=== PATIENT | male | born 1950 | race Two or more races ===

== ENCOUNTER 2021-08-19 17:33 | Emergency (ER) | payer MEDICARE, SELFPAY ==
--- NOTE | ~2021-08-19 | XR_ITS ---
EXAMINATION: XR HAND, RIGHT CLINICAL INFORMATION: Swelling of fifth finger. Erythema. COMPARISON: None TECHNIQUE: Three views of the right hand. FINDINGS: No radiopaque foreign body. No air in the soft tissue. No bone destruction or abnormal periosteal reaction. No radiographic evidence for osteomyelitis. Bone mineral density is maintained. No significant degenerative change. Joint spaces are normal. XR/XR hand RT 2V IMPRESSION: Normal right hand.
--- NOTE | 2021-08-19 17:41 | ED_ITS ---
HPI - General Adult General Chief complaint: Extremity Injury, Upper Stated complaint: skin- redness Time Seen by Provider: 08/19/21 17:41 Source: patient Mode of arrival: ambulatory History of Present Illness HPI narrative: 70-year-old male with past medical history of diabetes, AFib s/p ablation on Eliquis, HTN, HLD, presenting to the ED complaining of right 5th digit pain, swelling and decreased ROM x4 days. Denies known injury/trauma or fall, numbness, tingling, fever, chills, drainage from area. Related Data Previous Rx's Medication Instructions Recorded amoxicillin 875 mg-potassium 1 tab PO Q12H 7 Days #14 tab 08/19/21 clavulanate 125 mg tablet (Augmentin) prednisone 20 mg tablet 40 mg PO DAILY 4 Days #8 tab 08/19/21 Allergies Allergy/AdvReac Type Severity Reaction Status Date / Time No Known Allergies Allergy Verified 08/19/21 17:47 Review of Systems Verdana 4l Review of Systems: Verdana 4d Verdana 4d Constitutional: No Fever, No Chills ENT/Mouth: No Ear Pain, No Nasal Congestion, No sore throat, No Swallowing Difficulty Cardiovascular: No Chest Pain, No SOB Respiratory: No Cough, No Sputum Gastrointestinal: No Nausea, No Vomiting, No DiarrheaDiarrhea, No Constipation, No Abdominal pain Genitourinary: No Dysuria, No Hematuria, No Flank Pain Musculoskeletal: + joint pain, No Myalgias, + Joint Swelling Skin: No Skin Lesions, No rash Neuro: No Weakness, No Numbness, No Paresthesias Yes all other systems are reviewed and are negative [facility] Past Medical History Attestation statement: The following information was validated with the patient. Medical History Atrial fibrillation Diabetes DVT (deep venous thrombosis) Failed total left knee replacement Surgical History H/O cardiac radiofrequency ablation History of right hip replacement Social History Social History Advance Directives: No Advance Directives Information Provided: No Physical Exam Verdana 4l Vital Signs: Verdana 4d Verdana 4d Vital Signs: Verdana 4d Verdana 4Bd Last Vital Signs Verdana 4d Herb Grower New 4d Herb Grower New 4d Temp 98.4 F 08/19/21 17:42 Herb Grower New 4d Pulse 89 08/19/21 17:42 Herb Grower New 4d Resp 16 08/19/21 17:42 BP 150/74 H 08/19/21 17:42 Pulse Ox 96 08/19/21 17:42 BMI result Body Mass Index 35.9 Const: General: cooperative, healthy appearing, comfortable and no acute distress Orientation/consciousness: patient oriented x3 Limitations: no limitations HENMT: Head: Yes normal to inspection Ears: hearing grossly normal bilaterally General nose exam: Normal external nose present Face and sinus: Yes normal facial exam Eyes: General: appearance normal, both eyes and all related structures EOM: EOMs intact bilaterally Neck: Neck: Yes normal visual inspection and Yes no meningeal signs Resp: Effort & Inspection: normal respiratory effort and no respiratory distress Cardio: Rate: regular rate Peripheral pulses: radial pulses present Skin: Rashes: no rashes Wounds: no wounds Neuro: General: patient oriented x3 and no meningeal signs Gait exam (Neuro): Normal gait present Extrem: Other: Please refer to images above. Right 5th digit with noted swelling, erythema, and warmth to PIP with tenderness to palpation. Decreased ROM secondary to pain/swelling. Erythema extending to hand on palmar and volar aspect. No fluctuance/induration. NV intact. Course Course Course Narrative: -1848--no leukocytosis. Lactic acid elevated to 2.8 likely from Metformin rather than severe sepsis > Low concern for sepsis XR hand RT 2V IMPRESSION: Normal right hand. -1911-- Creatinine 1.49 (no priors to compare), uric acid mildly elevated at 9.1, CRP mildly elevated 3.15, ESR 40 -case discussed with Dr. Mejia > lower concern for septic joint/arthritis >> results discussed with patient, will treat empirically with p.o. Augmentin for infectious etiology and Prednisone for gout. Patient unable to take NSAIDs due to anticoagulation therapy. Discussed close glucose monitoring while on prednisone. Patient needs re-evaluation in 2 days, he verbalized understanding and feels safe for discharge home at this time Medical Decision Making MDM Narrative Medical decision making narrative: 70-year-old male with past medical history of diabetes, AFib s/p ablation on Eliquis, HTN, HLD, presenting to the ED complaining of right 5th digit pain, swelling and decreased ROM x4 days. Concern for cellulitis vs Gout vs ?Septic joint/arthritis vs tick/insect bite. No evidence of abscess at this time Low concern for severe sepsis. Plan: Labs, lactic/blood cultures, CXR, re-evaluate Medical Records Medical records reviewed: Yes I reviewed the patient's medical records. Lab Data Lab results reviewed: Yes I reviewed the patient's lab results. Result diagrams: 08/19/21 18:21 08/19/21 18:21 Labs: Lab Results 08/19/21 08/19/21 Range/Units 18:21 18:21 WBC 8.1 (4.8-10.8) X10*3/uL RBC 4.36 L (4.60-5.80) X10*6/uL Hgb 11.6 L (14.0-18.0) g/dl Hct 37.0 L (42.0-52.0) % MCV 84.9 (80.0-98.0) fL MCH 26.6 L (27.0-33.0) pg MCHC 31.4 (31.0-36.0) g/dl RDW 18.7 H (11.0-16.0) % Plt Count 220 (160-400) X10*3/uL MPV 10.2 (9.4-12.4) fL Immature Gran % (Auto) 0.5 H (0.0-0.4) % Neut % (Auto) 75.1 H (45-73) % Lymph % (Auto) 12.5 L (20-40) % [place] % (Auto) 7.5 (2-11) % Eos % (Auto) 3.5 (0-4) % Baso % (Auto) 0.9 (0-2) % Lymph # (Auto) 1.0 L (1.2-4.9) X10*3/uL [place] # (Auto) 0.6 (0.1-1.2) X10*3/uL Eos # (Auto) 0.3 (0.0-0.4) X10*3/uL Baso # (Auto) 0.1 (0.0-0.2) X10*3/uL Abs Immat Gran (auto) 0.04 H (0.00-0.03) X10*3/uL Absolute Neuts (auto) 6.1 (2.0-8.3) x10*3/uL Absolute Nucleated RBC 0.000 (0.0-0.012) X10*3/uL Nucleated RBC % (auto) 0.0 (0.0-0.2) /100WBC Lactic Acid 2.8 H* (0.5-2.0) mmol/L Discharge Plan Discharge Clinical Impression: Cellulitis, Gout Patient Disposition: Home, Self-Care Instructions: Cellulitis (ED), Low Purine Diet (ED), Gout (ED) Additional Instructions: Your blood work shows an elevation in your uric acid which is consistent with gout as well as elevated inflammatory markers. You have cellulitis. Augmentin as an antibiotic please take as prescribed. In addition prednisone will help with gout. Take Tylenol as you cannot take ibuprofen due to being on Eliquis. Be aware prednisone will affect your glucose, monitor closely YOU NEED TO BE RE-EVALUATED IN 2 DAYS If symptoms persist or worsen, redness spreads, swelling worsens, pain becomes unbearable, you develop fever, streaking return to the ED immediately Prescriptions: New prednisone 20 mg tablet 40 mg PO DAILY 4 Days Qty: 8 0RF amoxicillin-pot clavulanate [Augmentin] 875-125 mg tablet 1 tab PO Q12H 7 Days Qty: 14 0RF Referrals: Alee Guidry MD [Primary Care Provider] - 2 days (For re-evaluation)
[2021-08-19 17:42] VITALS: BP 150/74; PULSE 89; RESP 16; TEMP 36.9; O2SAT 96; BMI 35.9
[2021-08-19 18:30] LABS: MANUAL DIFF FLAG NO
[2021-08-19 18:33] LABS: Basophils Absolute Auto 0.1 X10*3/uL (0.0-0.2); Basophils Percent Auto 0.9 % (0-2); Eosinophils Absolute Auto 0.3 X10*3/uL (0.0-0.4); Eosinophils Percent Auto 3.5 % (0-4); Hemoglobin 11.6 g/dl (14.0-18.0); Imm Gran Abs Auto 0.04 X10*3/uL (0.00-0.03); Imm Gran Pct Auto 0.5 % (0.0-0.4); Lymphocytes Percent Auto 12.5 % (20-40); Mean Corpuscular HGB Conc 31.4 g/dl (31.0-36.0); Mean Corpuscular Hemoglobin 26.6 pg (27.0-33.0); Mean Corpuscular Volume 84.9 fL (80.0-98.0); Mean Platelet Volume 10.2 fL (9.4-12.4); Monocytes Absolute Auto 0.6 X10*3/uL (0.1-1.2); Monocytes Percent Auto 7.5 % (2-11); Neutrophils Absolute Auto 6.1 x10*3/uL (2.0-8.3); Neutrophils Percent Auto 75.1 % (45-73); Platelet Count 220 X10*3/uL (160-400); Red Blood Count 4.36 X10*6/uL (4.60-5.80); Red Cell Distribution Width 18.7 % (11.0-16.0); White Blood Count 8.1 X10*3/uL (4.8-10.8)
[2021-08-19 18:49] LABS: Lactic Acid 2.8 mmol/L (0.5-2.0)
[2021-08-19 18:50] LABS: Anion Gap 19 (12-20); Blood Urea Nitrogen 15 mg/dL (9-16); C Reactive Protein 3.15 mg/dL (< or = 0.50); Carbon Dioxide 23 mmol/L (22-29); Chloride 99 mmol/L (96-108); Estimated Glomerular Filt Rate 47; Glucose Random 162 mg/dL (60-115); Potassium 3.6 mmol/L (3.3-5.1); Sodium 137 mmol/L (135-145); Uric Acid 9.1 mg/dL (3.4-7.0)
[2021-08-19] MEDS: 0.9 % Sodium Chloride 1,000 ML 999 ML IV (18:55)
[2021-08-19 19:08] LABS: Erythrocyte Sedimentation Rate 40 MM/HR (0-15)
[2021-08-19] MEDS: Amoxicillin/Potassium Clav 875 MG TABLET PO (19:28)
[2021-08-19] MEDS: predniSONE 20 MG TABLET 40 MG PO (19:28)
[2021-08-19 20:28] LABS: Reflex Lactate? Lactic Acid Added
== END 2021-08-19 20:16 | disposition home or self-care (01) ==
PROVIDERS: Physician Assistant; Emergency Provider Emergency Medicine Emergency Medical Services; PCP Internal Medicine
DX: L03.011 Cellulitis of right finger (principal); M10.9 Gout, unspecified; M79.644 Pain in right finger(s); E11.9 Type 2 diabetes mellitus without complications; I10 Essential (primary) hypertension; I48.91 Unspecified atrial fibrillation; Z79.01 Long term (current) use of anticoagulants
CPT/HCPCS: 36415; 73120; 80048; 83605; 84550; 85025; 85652; 86140; 87040; 96360; 99284

== ENCOUNTER 2022-03-16 10:44 | Emergency (ER) | payer MEDICARE, SELFPAY ==
--- NOTE | ~2022-03-16 | XR_ITS ---
EXAMINATION: X-RAY RIGHT WRIST CLINICAL INFORMATION: Medial pain 3 days. No known injury. COMPARISON: None TECHNIQUE: X-ray 08/19/2021 FINDINGS: Skin marker positioned along the medial aspect of the wrist. No evidence of acute fracture or dislocation. Mild degenerative changes in the distal ulna/ulnar styloid process. No evidence of significant arthropathy. No erosions or abnormal soft tissue calcification. Wrist soft tissue swelling.. XR/XR hand wrist RT IMPRESSION: No radiographically evident acute fracture. Mild degenerative changes as above.
[2022-03-16 10:50] VITALS: BP 150/61; PULSE 88; RESP 20; TEMP 36.9; O2SAT 98; BMI 35.7
[2022-03-16 11:16] LABS: MANUAL DIFF FLAG NO
[2022-03-16 11:22] LABS: Basophils Absolute Auto 0.1 X10*3/uL (0.0-0.2); Eosinophils Absolute Auto 0.2 X10*3/uL (0.0-0.4); Eosinophils Percent Auto 2.6 % (0-4); Hematocrit 37.4 % (42.0-52.0); Hemoglobin 11.4 g/dl (14.0-18.0); Imm Gran Abs Auto 0.04 X10*3/uL (0.00-0.03); Imm Gran Pct Auto 0.4 % (0.0-0.4); Lymphocytes Absolute Auto 0.9 X10*3/uL (1.2-4.9); Mean Corpuscular HGB Conc 30.5 g/dl (31.0-36.0); Mean Corpuscular Hemoglobin 24.5 pg (27.0-33.0); Mean Corpuscular Volume 80.3 fL (80.0-98.0); Monocytes Absolute Auto 0.6 X10*3/uL (0.1-1.2); Platelet Count 264 X10*3/uL (160-400); Red Blood Count 4.66 X10*6/uL (4.60-5.80); Red Cell Distribution Width 17.2 % (11.0-16.0); White Blood Count 8.9 X10*3/uL (4.8-10.8)
[2022-03-16 11:32] LABS: Anion Gap 14 (12-20); Blood Urea Nitrogen 11 mg/dL (9-16); Calcium 8.9 mg/dL (8.4-10.2); Carbon Dioxide 30 mmol/L (22-29); Chloride 98 mmol/L (96-108); Creatinine Clr Calc Pharmacy 83.9; Estimated Glomerular Filt Rate > 60; Glucose Random 159 mg/dL (60-115); Potassium 3.6 mmol/L (3.3-5.1); Sodium 138 mmol/L (135-145)
--- NOTE | 2022-03-16 14:57 | ED.EXTPRO ---
HPI - Extremity Problem General Chief complaint: Extremity Problem Stated complaint: R hand pain, unable to move, no inj Time Seen by Provider: 03/16/22 11:26 Source: patient Mode of arrival: ambulatory Limitations: no limitations History of Present Illness HPI Narrative: 71-year-old male with a past medical history of diabetes, AFib on Eliquis, DVT, gout, who presented today for evaluation of right wrist/hand pain, swelling and erythema x4 days; reports worsening of symptoms since Monday. Denies any injury or similar episodes in the past. Tried tylenol, ice, and compression with no relief of symptoms. Denies fever, cough, shortness of breath, chest pain, nausea, vomiting, diarrhea. Denies any recent illness. Does report one prior episode of gout in his great toe and right pinky. MD Complaint: joint swelling and joint pain Onset (ago): day(s) Pain Consistency: constant Location: right Relieving factors: nothing Exacerbating factors: range of motion Associated symptoms: denies other symptoms Context: history of gout Related Data Previous Rx's Medication Instructions Recorded amoxicillin 875 mg-potassium 1 tab PO Q12H 7 days #14 tabs 08/19/21 clavulanate 125 mg tablet (Augmentin) prednisone 20 mg tablet 40 mg PO DAILY 4 days #8 tabs 08/19/21 acetaminophen 500 mg tablet 500 mg PO Q6H PRN fever or pain 03/16/22 (Tylenol Extra Strength) #14 tabs cephalexin 500 mg capsule 500 mg PO QID 7 days #28 caps 03/16/22 doxycycline hyclate 100 mg tablet 100 mg PO BID 7 days #14 tabs 03/16/22 prednisone 20 mg tablet 40 mg PO DAILY 5 days #10 tabs 03/16/22 Allergies Allergy/AdvReac Type Severity Reaction Status Date / Time No Known Allergies Allergy Verified 08/19/21 17:47 Review of Systems Review of Systems: Constitutional: No Fever, No Chills ENT/Mouth: No Ear Pain, No Nasal Congestion, No Sinus Pain, No Hoarseness, No sore throat, No Rhinorrhea, No Swallowing Difficulty Cardiovascular: No Chest Pain, No SOB Respiratory: No Cough, No Sputum, No Wheezing Gastrointestinal: No Nausea, No Vomiting, No Diarrhea, No Constipation, No Abdominal pain Genitourinary: No Dysuria, No Urinary Frequency, No Hematuria, No Urinary Incontinence/retention, No Urgency, No Flank Pain Musculoskeletal: + right wrist pain, + right wrist swelling Skin: +warmth and redness of right wrist. No Skin Lesions, No rash Neuro: No Weakness, No Numbness, No Paresthesias Yes all other systems are reviewed and are negative Constitutional: Constitutional: Reports as per [facility] Past Medical History Attestation statement: The following information was validated with the patient. Medical History Atrial fibrillation Diabetes DVT (deep venous thrombosis) Failed total left knee replacement Surgical History H/O cardiac radiofrequency ablation History of right hip replacement Social History Social History Advance Directives: Yes Advance Directives Information Provided: Yes Advance Directives on File: No Physical Exam Vital Signs: Vital Signs: Last Vital Signs Temp 98.4 F 03/16/22 10:50 Pulse 88 03/16/22 10:50 Resp 20 03/16/22 10:50 BP 150/61 H 03/16/22 10:50 Pulse Ox 98 03/16/22 10:50 O2 Del Method 03/16/22 10:50 BMI result Body Mass Index 35.7 Const: General: cooperative, healthy appearing and no acute distress Orientation/consciousness: patient oriented x3 Limitations: no limitations HEENT: Head: Yes normal to inspection and Yes atraumatic Ears: hearing grossly normal bilaterally General nose exam: Normal external nose present Face and sinus: Yes normal facial exam Eyes: General: appearance normal, both eyes and all related structures EOM: EOMs intact bilaterally Neck: Neck: Yes normal visual inspection and Yes no meningeal signs Resp: Effort & Inspection: normal respiratory effort and no respiratory distress Cardio: Rate: regular rate Heart sounds: S1 normal heart sound present and S2 normal heart sound present Peripheral pulses: radial pulses present and ulnar radial pulses present GI: Inspection: Yes normal to inspection : General: Yes no CVA tenderness Back/Spine/Pelvis: Back: no CVA tenderness Neuro: General: patient oriented x3, tone normal and no meningeal signs Gait exam (Neuro): Normal gait present Extrem: Other: Please refer to image above Right upper extremity: edema and wrist Details: tenderness, swelling, abnormal ROM (secondary to pain) Details: pain with active ROM during and pain with passive ROM during and warmth Left upper extremity: normal to inspection Right lower extremity: normal to inspection Left lower extremity: normal to inspection Course Course Course Narrative: XR hand wrist RT IMPRESSION: No radiographically evident acute fracture. Mild degenerative changes as above.? -no leukocytosis, ESR and CRP acutely elevated -lactic acid negative. uric acid also elevated to 8.0 > more likely gouty arthritic flare rather than septic joint > case was discussed with Ortho CAROLYN Funk who is in agreement with plan to discharge patient with p.o. antibiotics and gout treatment Results discussed with patient including worrisome signs and symptoms and strict return precautions, and when to return to the emergency department. They verbalized understanding and feel safe for discharge at this time. MDM - Extremity (Nontraumatic) MDM Narrative Medical decision making narrative: Patient is a 71-year-old male presenting with swelling, redness, and pain of the right wrist since Monday..On exam, redness, warmth, and swelling of right wrist noted. ROM limited due to pain and swelling. Hand neurovascularly intact. Xrays of right wrist unremarkable, no leukocytosis. Differential includes: gout vs septic arthritis vs cellulitis. Medical Records Attestation: I reviewed the patient's medical records. Lab Data Attestation: I reviewed the patient's lab results. Result diagrams: 03/16/22 11:08 03/16/22 11:08 Labs: Lab Results 03/16/22 03/16/22 03/16/22 Range/Units 11:08 11:08 11:08 WBC 8.9 (4.8-10.8) X10*3/uL RBC 4.66 (4.60-5.80) X10*6/uL Hgb 11.4 L (14.0-18.0) g/dl Hct 37.4 L (42.0-52.0) % MCV 80.3 (80.0-98.0) fL MCH 24.5 L (27.0-33.0) pg MCHC 30.5 L (31.0-36.0) g/dl RDW 17.2 H (11.0-16.0) % Plt Count 264 (160-400) X10*3/uL MPV 10.0 (9.4-12.4) fL Immature Gran % (Auto) 0.4 (0.0-0.4) % Neut % (Auto) 79.0 H (45-73) % Lymph % (Auto) 10.0 L (20-40) % [place] % (Auto) 7.0 (2-11) % Eos % (Auto) 2.6 (0-4) % Baso % (Auto) 1.0 (0-2) % Lymph # (Auto) 0.9 L (1.2-4.9) X10*3/uL [place] # (Auto) 0.6 (0.1-1.2) X10*3/uL Eos # (Auto) 0.2 (0.0-0.4) X10*3/uL Baso # (Auto) 0.1 (0.0-0.2) X10*3/uL Abs Immat Gran (auto) 0.04 H (0.00-0.03) X10*3/uL Absolute Neuts (auto) 7.0 (2.0-8.3) x10*3/uL Absolute Nucleated RBC 0.000 (0.0-0.012) X10*3/uL Nucleated RBC % (auto) 0.0 (0.0-0.2) /100WBC ESR 80 H (0-15) MM/HR Sodium 138 (135-145) mmol/L Potassium 3.6 (3.3-5.1) mmol/L Chloride 98 (96-108) mmol/L Carbon Dioxide 30 H (22-29) mmol/L Anion Gap 14 (12-20) BUN 11 (9-16) mg/dL Creatinine 1.03 (0.5-1.4) mg/dL Estim Creat Clear Calc 83.9 Estimated GFR > 60 Random Glucose 159 H (60-115) mg/dL Lactic Acid (0.5-2.0) mmol/L Uric Acid (3.4-7.0) mg/dL Calcium 8.9 (8.4-10.2) mg/dL C-Reactive Protein 6.92 H (< or = 0.50) mg/dL 03/16/22 03/16/22 Range/Units 15:37 15:37 WBC (4.8-10.8) X10*3/uL RBC (4.60-5.80) X10*6/uL Hgb (14.0-18.0) g/dl Hct (42.0-52.0) % MCV (80.0-98.0) fL MCH (27.0-33.0) pg MCHC (31.0-36.0) g/dl RDW (11.0-16.0) % Plt Count (160-400) X10*3/uL MPV (9.4-12.4) fL Immature Gran % (Auto) (0.0-0.4) % Neut % (Auto) (45-73) % Lymph % (Auto) (20-40) % [place] % (Auto) (2-11) % Eos % (Auto) (0-4) % Baso % (Auto) (0-2) % Lymph # (Auto) (1.2-4.9) X10*3/uL [place] # (Auto) (0.1-1.2) X10*3/uL Eos # (Auto) (0.0-0.4) X10*3/uL Baso # (Auto) (0.0-0.2) X10*3/uL Abs Immat Gran (auto) (0.00-0.03) X10*3/uL Absolute Neuts (auto) (2.0-8.3) x10*3/uL Absolute Nucleated RBC (0.0-0.012) X10*3/uL Nucleated RBC % (auto) (0.0-0.2) /100WBC ESR (0-15) MM/HR Sodium (135-145) mmol/L Potassium (3.3-5.1) mmol/L Chloride (96-108) mmol/L Carbon Dioxide (22-29) mmol/L Anion Gap (12-20) BUN (9-16) mg/dL Creatinine (0.5-1.4) mg/dL Estim Creat Clear Calc Estimated GFR Random Glucose (60-115) mg/dL Lactic Acid 1.4 (0.5-2.0) mmol/L Uric Acid 8.0 H (3.4-7.0) mg/dL Calcium (8.4-10.2) mg/dL C-Reactive Protein (< or = 0.50) mg/dL Discharge Plan Discharge Clinical Impression: Gout, Cellulitis Patient Disposition: Home, Self-Care Instructions: Cellulitis (ED), Gout (ED), Low Purine Diet (ED) Additional Instructions: Your x-rays are unremarkable. your blood work shows elevation your inflammatory markers and uric acid consistent with gout. Keflex and doxycycline or antibiotics please take as prescribed. Avoid the sun while on doxycycline as makes you very sensitive to sunburn Prednisone will help with a gouty flare, be aware this medication will increase your sugar, monitor closely. You should be re-evaluated in 2 days. If your symptoms persist or worsen, pain becomes unbearable, redness or swelling increases/spreads or you have fever return to the ED Prescriptions: New prednisone 20 mg tablet 40 mg PO DAILY 5 Days Qty: 10 0RF acetaminophen [Tylenol Extra Strength] 500 mg tablet 500 mg PO Q6H PRN (Reason: fever or pain) Qty: 14 0RF cephalexin 500 mg capsule 500 mg PO QID 7 Days Qty: 28 0RF doxycycline hyclate 100 mg tablet 100 mg PO BID 7 Days Qty: 14 0RF No Action prednisone 20 mg tablet 40 mg PO DAILY 4 Days Qty: 8 0RF amoxicillin-pot clavulanate [Augmentin] 875-125 mg tablet 1 tab PO Q12H 7 Days Qty: 14 0RF Referrals: Duke Kolb PA-C [[facility] [employer]] - (as needed) Seth Guidry MD [Primary Care Provider] - 2 days
[2022-03-16 15:19] LABS: C Reactive Protein 6.92 mg/dL (< or = 0.50)
[2022-03-16 15:51] LABS: Erythrocyte Sedimentation Rate 80 MM/HR (0-15)
[2022-03-16] MEDS: Acetaminophen 325 MG TABLET 975 MG PO (15:51)
[2022-03-16 16:15] LABS: Lactic Acid 1.4 mmol/L (0.5-2.0)
== END 2022-03-16 17:04 | disposition home or self-care (01) ==
PROVIDERS: Physician Assistant; Student in an Organized Health Care Education/Training Program; Emergency Provider Emergency Medicine; PCP Internal Medicine Nephrology
DX: M1A.0410 Idiopathic chronic gout, right hand, without tophus (tophi) (principal); L03.113 Cellulitis of right upper limb; M79.641 Pain in right hand; I48.91 Unspecified atrial fibrillation; Z79.899 Other long term (current) drug therapy; Z79.01 Long term (current) use of anticoagulants
CPT/HCPCS: 36415; 73110; 73130; 80048; 83605; 84550; 85025; 85652; 86140; 87040; 99283; 99284

== ENCOUNTER 2023-10-24 17:20 | Emergency (ER) | payer MEDICARE, SELFPAY ==
--- NOTE | ~2023-10-24 | CT_ITS ---
EXAMINATION: CT LUMBAR SPINE WITHOUT CONTRAST CLINICAL INFORMATION: Midline tenderness to palpation. Fall. COMPARISON: None available. TECHNIQUE: Multidetector helical imaging of the lumbar spine was obtained without intravenous contrast. Multiple axial reformats and coronal/sagittal reconstructions were created the technologist workstation for review. This CT examination was performed using dose optimization techniques as appropriate, variously including the following: *Automated exposure control. *Adjustment of mA and/or kV according to patient size (this includes techniques or standardized protocols for targeted exams where dose is matched to indication/reason for exam; i.e. extremities or head). *Use of iterative reconstruction technique. DLP: 601 mGy-cm FINDINGS: Mild degenerative retrolisthesis of L5 on S1. Otherwise, normal anatomic alignment. Compression fracture along the inferior endplate of L1 with mild loss of anterior body height (20%). No evidence of additional acute fracture or traumatic subluxation. The remaining vertebral body heights are maintained. Moderate degenerative disc disease at L1-L2 and L4-L5. Mild degenerative disc disease at all additional levels.. No suspicious lytic or sclerotic osseous lesions. Mild subcutaneous edema within the posterior soft tissues the back. No additional significant abnormalities of the paraspinal musculature. Mild diverticulosis of the visualized sigmoid colon. Partially visualized 5 cm soft tissue attenuating lesion between the left adrenal gland and spleen of indeterminate etiology. The left adrenal gland appears mildly displaced anteriorly with mild surrounding fat stranding. Otherwise, limited evaluation of the intra-abdominal structures without significant abnormalities. The abdominal aorta is of normal contour and caliber with moderate calcific atherosclerotic disease. AXIAL SPINAL LEVELS: L1-L2: Mild diffuse disc bulge. There is mild bilateral facet joint arthropathy. There is no neural foraminal stenosis. There is no demonstrated spinal canal stenosis. L2-L3: Mild diffuse disc bulge. There is mild left worse than right facet joint arthropathy. There is no neural foraminal stenosis. There is no demonstrated spinal canal stenosis. L3-L4: Mild diffuse disc bulge. There is mild bilateral facet joint arthropathy. There is mild bilateral neural foraminal stenosis. There appears to be mild spinal canal stenosis exacerbated by prominent dorsal epidural lipomatous tissue. L4-L5: Moderate diffuse disc bulge with posterior osseous ridging and superimposed central/right subarticular disc extrusion with superior migration. There is severe right and moderate left facet joint arthropathy. There is severe right and moderate left neural foraminal stenosis. There appears to be moderate to severe spinal canal stenosis. L5-S1: Moderate diffuse disc bulge with posterior osseous ridging. There is severe left and moderate right facet joint arthropathy. There is moderate left and mild right neural foraminal stenosis. There is no demonstrated spinal canal stenosis. CT/CT lumbar spine wo IV con IMPRESSION: 1. Compression fracture along the inferior endplate of L1 with mild loss of anterior body height. 2. No evidence of additional acute fracture or traumatic subluxation of the lumbar spine. 3. 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 Most notably on this limited exam without intrathecal contrast, there appears to be moderate to severe spinal canal stenosis at L4-L5. Mild spinal canal stenosis at L3-L4. Moderate to severe neural foraminal stenoses at L4-L5 and L5-S1. 4. Partially visualized 5 cm soft tissue attenuating lesion between the left adrenal gland and spleen of indeterminate etiology. There is also mild nonspecific fat stranding surrounding the left adrenal gland. Recommend further characterization with dedicated abdominal imaging.
--- NOTE | ~2023-10-24 | XR_ITS ---
EXAMINATION: XR HIP, LEFT CLINICAL INFORMATION: Fall. Recent hip arthroplasty. COMPARISON: None available. TECHNIQUE: AP view of the pelvis as well as AP and frog-leg lateral views of the left hip. FINDINGS: Left hip arthroplasty in expected anatomic alignment. No hardware fracture or dislocation. No perihardware lucency to suggest loosening or infection. No osseous fracture. No concerning lytic or blastic osseous lesion. Partially visualized right hip arthroplasty without evidence of complication. No abnormal soft tissue calcification. XR/XR hip LT w PEL1V IMPRESSION: 1. Left hip arthroplasty without evidence of complication. 2. No acute fracture or dislocation.
[2023-10-24 17:36] VITALS: BP 144/80; PULSE 84; RESP 18; TEMP 36.7; O2SAT 97; BMI 33.8
--- NOTE | 2023-10-24 17:54 | ED.BACK ---
HPI - Back Pain/Injury General Chief Complaint: Back Pain/Injury Stated Complaint: FALL,LOW BACK PAIN Time Seen by Provider: 10/24/23 17:29 Source: patient Mode of arrival: EMS Limitations: no limitations History of Present Illness HPI Narrative: Patient is a 72-year-old male who presents emergency department via EMS for evaluation of 04/25 diffuse lower back pain. He reports a mechanical fall 2 nights ago at home. He reports he was getting undressed and ready for bed, attempting to kick off his shoes, when he lost his balance landing backwards onto his buttock. He denies any head strike or loss of consciousness with this fall. He has been experiencing diffuse lower back pain. He does report that in August of 2023 he had a partial hip replacement on the left at [facility] s/p a mechanical slip and fall while in [facility] resulting in a hip fracture. He denies any bladder bowel dysfunction. Reports chronic paresthesias to the bilateral feet though not increased from baseline. Denies saddle paresthesia. Denies genitourinary symptoms. Related Data Previous Rx's ?Medication ?Instructions ?Recorded amoxicillin 875 mg-potassium 1 tab PO Q12H 7 days #14 tabs 08/19/21 clavulanate 125 mg tablet (Augmentin) prednisone 20 mg tablet 40 mg (2 x 20 mg) PO DAILY 4 days 08/19/21 #8 tabs acetaminophen 500 mg tablet 500 mg PO Q6H PRN fever or pain 03/16/22 (Tylenol Extra Strength) #14 tabs cephalexin 500 mg capsule 500 mg PO QID 7 days #28 caps 03/16/22 doxycycline hyclate 100 mg tablet 100 mg PO BID 7 days #14 tabs 03/16/22 prednisone 20 mg tablet 40 mg (2 x 20 mg) PO DAILY 5 days 03/16/22 #10 tabs oxycodone 5 mg tablet 5 mg PO Q6H PRN pain #10 tabs 10/24/23 Allergies Allergy/AdvReac Type Severity Reaction Status Date / Time No Known Allergies Allergy Verified 10/24/23 17:39 Review of Systems Review of Systems: Yes all other systems are reviewed and are negative PMFSH Past Medical History Attestation statement: The following information was validated with the patient. Source: old records reviewed Medical History Failed total left knee replacement Diabetes Atrial fibrillation DVT (deep venous thrombosis) Surgical History History of right hip replacement H/O cardiac radiofrequency ablation Social History Social History Advance Directives: No Advance Directives Information Provided: No Physical Exam Vital Signs: Vital Signs: Last Vital Signs Temp 0 F L 10/24/23 23:56 Pulse 0 L 10/24/23 23:56 Resp 0 L 10/24/23 23:56 BP 00/00 L 10/24/23 23:56 Pulse Ox 0 L 10/24/23 23:56 O2 Del Method Room Air 10/24/23 17:36 BMI result Body Mass Index 33.8 Appearance: Alert.?Oriented to person, place and time. No acute distress.?Normal affect. Eyes: Pupils equal, round and reactive to light.? ENT: Pharynx normal.?? Neck: Normal inspection.? Neck supple.?? CVS: Heart sounds normal. Normal heart rate and rhythm.? Pulses normal.?? Respiratory: No respiratory distress.? Lung sounds clear to auscultation bilaterally?? Abdomen: Soft and non-tender. Normoactive bowel sounds. Back:L1-L3 midline TTP, no palpable step-offs or deformities. Bilateral paraspinal muscle tenderness upon palpation. Skin: Skin warm and dry.? Normal skin color.? Extremities: No lower extremity edema.? No calf ttp? Neuro: Moves all extremities spontaneously. Sensation intact bilaterally. No focal neuro deficits. Ambulates with slow gait and the use of a walker. Course Reevaluation(s) Reevaluation #1: XR reveals no acute fracture dislocation, hardware intact. 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 CT also incidental finding of 5 cm soft tissue attenuating lesion between the left adrenal gland and spleen fat stranding surrounding the left adrenal gland. Patient was made aware of the aforementioned findings, recommended outpatient follow-up closely with primary care provider, we discussed potential etiologies including potential cancerous etiology and patient verbalized the understanding of this. Regarding pain management a prescription for oxycodone to be sent to patient's pharmacy, and discussed conservative treatment of compression fractures. Discussed worrisome signs and symptoms that would warrant re-evaluation in the emergency department. All questions answered. Stable for discharge Time: 21:52 Medications Administered Discontinued Medications Generic Name Dose Route Start Last Admin Trade Name Robbie PRN Reason Stop Dose Admin Acetaminophen 975 mg 10/24/23 17:54 10/24/23 18:53 Acetaminophen 325 Mg Tablet PO 10/24/23 17:55 975 mg ONCE ONE Administration Cyclobenzaprine HCl 5 mg 10/24/23 17:53 10/24/23 18:53 Cyclobenzaprine Hcl 5 Mg Tablet PO 10/24/23 17:54 5 mg ONCE ONE Administration Lidocaine 1 patch 10/24/23 17:54 10/24/23 18:53 Lidocaine 4 % Patch Adh..Patch TRANSDERMA 10/24/23 17:55 1 patch ONCE ONE Administration Protocol Oxycodone HCl 5 mg 10/24/23 22:04 10/24/23 22:12 Oxycodone Hcl Immed Release 5 Mg Tablet PO 10/24/23 22:05 5 mg ONCE ONE Administration Medical Decision Making Medical Decision Making MDM Narrative: Patient is a 72-year-old male with past medical history of diabetes mellitus, DVT, atrial fibrillation on long-term anticoagulation with Eliquis, recent left hip replacement s/p fracture presenting to emergency department for evaluation of back pain the setting of a recent mechanical fall. On exam has midline tenderness upon palpation to L1-L3, bilateral paraspinal muscle tenderness. Full AROM to the bilateral hips, mild tenderness upon palpation of the left hip, though he denies any increase in pain in this region. Will obtain CT of the lumbar spine XR of the hip, trial pain management with acetaminophen, cyclobenzaprine, and Lidoderm patch. Differential Diagnosis Differential Diagnoses: The differential diagnosis associated with the presentation includes (Fracture, dislocation, subluxation, displaced hardware) Admission/Observation Consideration of admission/observation: Escalation of care including admission/observation considered (See course narrative for further detail) Independent Interpretation I performed an independent interpretation of an: Plain X-Ray (No fracture dislocation of the left hip) Radiology Impression Discussion of test interpretation with radiology: I have reviewed the radiologist's reading. Radiologist Impression: XR/XR hip LT w PEL1V IMPRESSION: 1. Left hip arthroplasty without evidence of complication. 2. No acute fracture or dislocation. CT/CT lumbar spine wo IV con IMPRESSION: 1. Compression fracture along the inferior endplate of L1 with mild loss of anterior body height. 2. No evidence of additional acute fracture or traumatic subluxation of the lumbar spine. 3. 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 Most notably on this limited exam without intrathecal contrast, there appears to be moderate to severe spinal canal stenosis at L4-L5. Mild spinal canal stenosis at L3-L4. Moderate to severe neural foraminal stenoses at L4-L5 and L5-S1. 4. Partially visualized 5 cm soft tissue attenuating lesion between the left adrenal gland and spleen of indeterminate etiology. There is also mild nonspecific fat stranding surrounding the left adrenal gland. Recommend further characterization with dedicated abdominal imaging. Independent Historian Clinical information obtained from an independent historian. History obtained from or confirmed by: EMS External Record Review External record reviewed: Other ([employer]) Tests considered The following testing was considered but not selected: Not feel that emergent CT/ MRI of the abdomen is warranted at this time Prescription Management I considered prescription management with: Pain Medication Chronic Conditions Patient?s care impacted by: Diabetes and Hypertension Critical Care Time Critical Care Time Critical Care Time: Yes Total Critical Care Time: 35 Attestation: I personally attest to this critical care time spent taking care of the patient exclusive of all other billable procedures was approximately 35 minutes including initial evaluation of patient, ordering tests, x-ray interpretation, pain medication management, documentation, re-evaluation. Discharge Plan Discharge Clinical Impression: Compression fracture Patient Disposition: Home, Self-Care Instructions: Procedures for Compression Fractures of the Spine (DC) Additional Instructions: CT/CT lumbar spine wo IV con IMPRESSION: 1. Compression fracture along the inferior endplate of L1 with mild loss of anterior body height. 2. No evidence of additional acute fracture or traumatic subluxation of the lumbar spine. 3. 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 Most notably on this limited exam without intrathecal contrast, there appears to be moderate to severe spinal canal stenosis at L4-L5. Mild spinal canal stenosis at L3-L4. Moderate to severe neural foraminal stenoses at L4-L5 and L5-S1. 4. Partially visualized 5 cm soft tissue attenuating lesion between the left adrenal gland and spleen of indeterminate etiology. There is also mild nonspecific fat stranding surrounding the left adrenal gland. Recommend further characterization with dedicated abdominal imaging. You can take Tylenol 500 mg, 2 tablets (1,000mg) every 4-6 hours as needed for pain, but not to exceed 3 doses daily (3,000mg).? A prescription for oxycodone was sent to your pharmacy. This is a narcotic medication. It can be addictive. It may make you drowsy. Do not drive, drink alcohol, or work while taking this medication. Please follow-up closely with your doctor and discuss follow-up regarding the soft tissue mass as discussed. As mentioned we are unable to determine from this image alone whether this is something potentially cancerous or not, please do not wait in follow-up as soon as possible within the next 1-2 weeks. You may return back to emergency department any new or worsening symptoms or concerns. Prescriptions: New oxycodone 5 mg tablet 5 mg PO Q6H PRN (Reason: pain) Qty: 10 0RF Rx Instructions: Partial Fill upon patient request. No Action prednisone 20 mg tablet 40 mg PO DAILY 5 Days Qty: 10 0RF acetaminophen [Tylenol Extra Strength] 500 mg tablet 500 mg PO Q6H PRN (Reason: fever or pain) Qty: 14 0RF cephalexin 500 mg capsule 500 mg PO QID 7 Days Qty: 28 0RF doxycycline hyclate 100 mg tablet 100 mg PO BID 7 Days Qty: 14 0RF prednisone 20 mg tablet 40 mg PO DAILY 4 Days Qty: 8 0RF amoxicillin-pot clavulanate [Augmentin] 875-125 mg tablet 1 tab PO Q12H 7 Days Qty: 14 0RF Referrals: Alee Guidry MD [Primary Care Provider] - Interventions: ED Discharge Assessment Last Done: 10/24/23 23:56 Discharge Date/Time: 10/24/23 22:05 Print Language: [place]
[2023-10-24] MEDS: Acetaminophen 325 MG TABLET 975 MG PO (18:53)
[2023-10-24] MEDS: Lidocaine 4 % Patch ADH..PATCH 1 PATCH TRANSDERMA (18:53)
[2023-10-24] MEDS: Cyclobenzaprine HCl 5 MG TABLET PO (18:53)
[2023-10-24] MEDS: oxyCODONE HCl Immed Release 5 MG TABLET PO (22:12)
[2023-10-24 23:56] VITALS: BP 00/00; PULSE 0; RESP 0; TEMP -17.7; TEMP 0; O2SAT 0
== END 2023-10-24 22:05 | disposition home or self-care (01) ==
PROVIDERS: Emergency Provider Emergency Medicine; PCP Internal Medicine
DX: M48.56XA Collapsed vertebra, not elsewhere classified, lumbar region, initial encounter for fracture (principal); M25.552 Pain in left hip
CPT/HCPCS: 72132; 73502; 99283; 99284